=== PATIENT | male | born 1955 | race Caucasian/White ===

== ENCOUNTER 2023-03-12 10:46 | Emergency (ER) | payer MEDICARE, MEDICAID ==
[~2023-03-12] VITALS: Ht 167.6 cm; Wt 91.0 kg
[2023-03-12 10:50] VITALS: O2SAT 95
[2023-03-12] MEDS ORDERED: ONDANSETRON HCL 4MG/2ML INJ IV STA (10:55)
[2023-03-12] MEDS ORDERED: SODIUM CHLORIDE 0.9% 1,000 ML IV ONE (11:15)
[2023-03-12] MEDS ORDERED: MAGNESIUM/ALUMINUM HYDROXIDE/SIMETHICONE 30ML UDC PO STA (12:20)
[2023-03-12] MEDS ORDERED: DICYCLOMINE 10 MG/5 ML ORAL SYR PO STA (12:20)
[2023-03-12 13:27] LABS: BASOPHILS % 0.3 % (0.0-2.0); EOSINOPHILS % 1.8 % (0.0-5.0); HEMATOCRIT. 40.1 % (42.0-52.0); HEMOGLOBIN. 13.8 g/dL (14.0-18.0); LYMPHOCYTES % 9.5 % (20.0-50.0); MEAN CORPUSCULAR HEMOGLOBIN 30.9 pg (28.0-32.0); MEAN CORPUSCULAR HGB CONC 34.4 g/dL (31.0-37.0); MEAN PLATELET VOLUME 8.1 fl (7.4-10.4); MONOCYTES % 6.7 % (2.0-8.0); NEUTROPHILS % 81.7 % (40.0-76.0); PLATELET 223 x1000/uL (130-400); RED BLOOD CELL COUNT 4.45 mill/uL (4.7-6.1); RED CELL DISTRIBUTION WIDTH 14.1 % (11.6-14.6); WHITE BLOOD COUNT 9.7 x1000/uL (4.5-11.0)
[2023-03-12] MEDS ORDERED: DOCU-138 MT (14:03)
[2023-03-12 15:30] LABS: CHLORIDE 103 mEq/L (98-107); INDEX HEMOLYSI 1 (1-3); INDEX ICTERIC 1 (1-4); INDEX LIPEMIC 1 (1-3); POTASSIUM 3.7 mEq/L (3.5-5.1); SODIUM 133 mEq/L (136-145)
[2023-03-12 15:38] LABS: ALANINE AMINOTRANSFERASE 130 IU/L (13-61); ALBUMIN 3.3 g/dL (3.4-5.0); ASPARTATE AMINOTRANSFERASE 185 IU/L (15-37); CALCIUM 8.3 mg/dL (8.5-10.1); CARBON DIOXIDE 23 mEq/L (21-32); CREATININE 0.6 mg/dL (0.6-1.3); ETHANOL BLOOD < 10 mg/dL (-10); GLUCOSE 193 mg/dL (70-105); PROTEIN TOTAL 6.8 g/dL (6.0-8.3); TROPONIN I HIGH SENSITIVITY 6 ng/L (<78); UREA NITROGEN BLOOD 16 mg/dL (7-21)
[2023-03-12 15:50] VITALS: BP 119/52; PULSE 59; RESP 12; TEMP 98.6
== END 2023-03-12 16:10 | disposition left against medical advice (07) ==
LOC: ER 12:55
DX: R07.89 Other chest pain (principal); R10.9 Unspecified abdominal pain; I10 Essential (primary) hypertension
CPT/HCPCS: 80053; 80320; 83690; 85025; 84484; 36415; 71045; 74176; 96360; 99291; J2405; J7030; G0480

== ENCOUNTER 2025-04-20 14:19 | Emergency (ER) | payer MEDICAID, MEDICARE ==
[~2025-04-20] VITALS: Ht 165.1 cm; Wt 95.0 kg
[~2025-04-20 14:19] MED LIST: DOCU-138 MT
[2025-04-20 14:22] VITALS: TEMP 36.9; O2SAT 100
[2025-04-20 14:35] VITALS: BP 114/53; PULSE 59; RESP 16; O2SAT 99
[2025-04-20] MEDS: SODIUM CHLORIDE 0.9% 1,000 ML IV ONE (14:50)
[2025-04-20] MEDS: NA PHOS,M-B/NA PHOS,DI-BA ENEMA 118ML PR ONE (15:06)
[2025-04-20] MEDS: METOCLOPRAMIDE HCL 10MG/2ML VIAL IV ONE (15:50)
[2025-04-20] MEDS ORDERED: SENN8.6T21 MT (15:53)
[2025-04-20] MEDS ORDERED: DOCU-138 MT (15:53)
[2025-04-20] MEDS ORDERED: METH150T MT (15:53)
== END 2025-04-20 16:05 | disposition left against medical advice (07) ==
LOC: ER 14:19
DX: S82.891A Other fracture of right lower leg, initial encounter for closed fracture (principal); K59.09 Other constipation; E11.9 Type 2 diabetes mellitus without complications; I10 Essential (primary) hypertension; F11.90 Opioid use, unspecified, uncomplicated; X58.XXXA Exposure to other specified factors, initial encounter; Y93.89 Activity, other specified; Y92.89 Other specified places as the place of occurrence of the external cause; Y99.8 Other external cause status
CPT/HCPCS: 74176; 99284; J7030